=== PATIENT | male | born 1940 | race Caucasian/White ===

== ENCOUNTER → 2018-11-07 | Outpatient (CLI) | payer MEDICARE ==
[~2018-11-07] MED LIST: ALBU8.5H IH; AMOX-559 PO; ASPI-1471 PO; AZIT-1 PO; BENZ200C15 PO; CETI10CA8 PO; ENOX40DI9 SQ; LEVO750T44 PO; METO-253 PO; OMEP-137 PO; OMEP40CA48 PO; PRED20TA6 PO; RANI-366 PO; SIMV-54 PO; SIMV10TA98 PO; WARF7.5T13 PO
--- NOTE | 2018-11-07 12:01 | RADIOLOGY IMAGING REPORT ---
[place] [facility] [place] Bipin Avelar : 1940 MR: [id number] V: [id number] EXAM DATE: ORDERING PHYSICIAN: RUTHIE OSPINA TECHNOLOGIST: Location: [facility] Patient: Bipin Avelar : 1940 Visit/Account:[id number] Date of Sevice: 11/07/2018 Exam type: L-SPINE >4 VIEWS History: Low back pain and left hip pain Comparison: None. Findings: There are five nonrib-bearing lumbar-type vertebral bodies present. There is a levoconvex scoliosis of the lumbar spine There are postsurgical changes from posterior lumbar interbody fusion at L5-S1. There is a 1.8 cm anterior listhesis of L5 with respect S1. There is moderate to severe disc space n arrowing at L4-5 with sclerosis of the adjacent endplates. Extensive degenerative changes of the fac et joints are also noted bilaterally at L4-5. There is mild to moderate disc space narrowing at L3-4 with marginal osteophytes and a 7 mm retrolisthesis of L3 with respect to L4. There is severe disc space narrowing at L2-3 and at L1-2 where there is sclerosis of the adjacent endplates and anterior o steophytes. Moderate spondylotic changes also noted at T12-L1 where there is moderate disc space june rowing and marginal osteophytes. Moderate spondylotic changes also present in the visualized portion of the lower thoracic spine. IMPRESSION: 1. Postoperative changes from posterior lumbar interbody fusion at L5-S1. Extensive spondylotic changes throughout the lumbar spine as described Report Dictated By: Christi Davila MD at 11/07/2018 11:47 AM Report E-Signed By: Christi Davila MD at 11/07/2018 11:57 AM WSN:[email or web address]
--- NOTE | 2018-11-07 12:03 | RADIOLOGY IMAGING REPORT ---
FACILITY: [facility] [place] PATIENT NAME: Bipin Avelar : 1940 MR: [id number] V: [id number] EXAM DATE: ORDERING PHYSICIAN: RUTHIE OSPINA TECHNOLOGIST: Location: [facility] Patient: Bipin Avelar : 1940 Visit/Account:[id number] Date of Sevice: 11/07/2018 Exam type: HIP LEFT History: Left hip pain Comparison: None. Findings: Two views of the left hip demonstrate mild to moderate left hip joint narrowing. There is no evidenc e of acute fracture dislocation or lytic or blastic bone lesion. IMPRESSION: 1. 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
== END ==
LOC: RAD 10:47
PROVIDERS: ATTEND Chiropractor
DX: M47.896 Other spondylosis, lumbar region (principal); M25.852 Other specified joint disorders, left hip
CPT/HCPCS: 72120

== ENCOUNTER → 2019-05-16 | Outpatient (CLI) | payer MEDICARE ==
[~2019-05-16] MED LIST changes: -RANI-366 PO; +RANI-54 PO
[2019-05-16 11:58] LABS: LDL CHOLESTEROL 78 mg/dl
[2019-05-16 11:59] LABS: PLATELET COUNT, AUTOMATED 118 K/uL (150-450)
== END ==
LOC: LAB 11:17
PROVIDERS: ATTEND Nurse Practitioner Family
DX: Z12.5 Encounter for screening for malignant neoplasm of prostate (principal); E78.5 Hyperlipidemia, unspecified; Z79.899 Other long term (current) drug therapy
CPT/HCPCS: 36415; 84443; 85025; G0103; 82040; 82247; 82310; 82374; 82435; 82465; 82565; 82947; 83718; 84075; 84132; 84153; 84155; 84295; 84450; 84460; 84478; 84520